=== PATIENT | male | born 1935 | race Caucasian/White ===

== ENCOUNTER 2018-12-31 16:42 | Emergency (ER) | payer OTHER ==
[~2018-12-31] VITALS: Ht 157.5 cm; Wt 56.7 kg
[2018-12-31] MEDS ORDERED: VITAMIN C500 M6 (16:54)
[2018-12-31] MEDS ORDERED: ZESTRIL10 M1 (16:54)
[2018-12-31] MEDS ORDERED: FOLIC ACID20 MG (16:54)
== END 2018-12-31 18:34 | disposition home or self-care (01) ==
LOC: ER 16:42
DX: J32.8 Other chronic sinusitis (principal)

== ENCOUNTER 2022-05-08 11:39 | Emergency (ER) | payer OTHER ==
[~2022-05-08] VITALS: Ht 154.9 cm; Wt 54.4 kg
[~2022-05-08 11:39] MED LIST: FOLIC ACID20 MG; VITAMIN C500 M6; ZESTRIL10 M1
[2022-05-08] MEDS ORDERED: LASIX20 MG PO (17:31)
== END 2022-05-08 18:21 | disposition home or self-care (01) ==
LOC: ER 11:39
DX: M25.472 Effusion, left ankle (principal)

== ENCOUNTER 2022-08-07 09:37 | Outpatient (CLI) | payer OTHER ==
[~2022-08-07 09:37] MED LIST changes: +LASIX20 MG PO
== END 2022-08-07 09:39 | disposition home or self-care (01) ==
LOC: NUCLEAR 09:37
PROVIDERS: ATTEND Internal Medicine
DX: I73.9 Peripheral vascular disease, unspecified (principal)